=== PATIENT | male | born 1950 | race Caucasian/White ===

== ENCOUNTER 2017-08-02 19:09 | Emergency (ER) | payer OTHER ==
--- NOTE | 2017-08-02 21:18 | ED Physician Documentation ---
PD HPI SKIN - Stated complaint Stated Complaint: SPIDER BITE - Chief complaint Chief Complaint: Ext Problem - History obtained from History obtained from: Patient - History of Present Illness Timing - onset: Today (he was rummaging in an old box or such and felt a slight pinch feeling. He is now getting some bruising and redness locally at that site. Thinks it might be a spider bite.) Timing - duration: Hours Timing - details: Abrupt onset, Still present Location: LUE (little finger) Quality / character: Burning, Discolored. No: Itchy, Painful, Draining Associated symptoms: No: Fever, N/V/D Contributing factors: Insect bite /sting (he thinks it might have been a spider bite.) Similar symptoms before: Diagnosis (did have a spider bite once in the past that developed local necrosis and took awhile to heal in.) Recently seen: Not recently seen Review of Systems Constitutional: denies: Fever, Chills Cardiac: denies: Chest pain / pressure, Palpitations Respiratory: denies: Dyspnea, Cough Neurologic: denies: Generalized weakness, Focal weakness, Numbness, Near syncope PD PAST MEDICAL HISTORY - Past Medical History Cardiovascular: None Respiratory: None Neuro: None - Present Medications Home Medications: Ambulatory Orders Medication Instructions Recorded Confirmed Epinephrine [Epipen 2-Jens] 0.3 mg IJ 08/02/17 Sulfamethox/Trimeth 800/160 1 each PO BID #14 tablet 08/02/17 [Bactrim Ds 800/160] - Allergies Allergies/Adverse Reactions: Allergies Allergy/AdvReac Type Severity Reaction Status Date / Time melon Allergy Anaphylaxis Verified 08/02/17 19:20 narcotics AdvReac Unknown Uncoded 08/02/17 19:20 - Social History Does the pt smoke?: No Smoking Status: Never smoker Does the pt drink ETOH?: No Does the pt have substance abuse?: No PD ED PE NORMAL - Vitals Vital signs reviewed: Yes - General General: Alert and oriented X 3, No acute distress, Well developed/nourished - HEENT HEENT: Pharynx benign - Neck Neck: Supple, no meningeal sign, No adenopathy - Cardiac Cardiac: RRR, No murmur - Respiratory Respiratory: No respiratory distress, Clear bilaterally - Derm Derm: Normal color, Warm and dry - Extremities Extremities: Other (left little finger with focal area of mild swelling and bruising, with mild redness. No purulence. No extended redness. Normal ROM and sensation. ) Results - Vitals Vitals: Oxygen O2 Source Room air PD MEDICAL DECISION MAKING - ED course Complexity details: considered differential (has local area of mild redness and some bruising. No red streaking. Might actually be a true spider bite. ), d/w patient Departure - Departure Disposition: 01 Home, Self Care Clinical Impression: Spider bite wound Qualifiers: Encounter type: initial encounter Injury intent: accidental or unintentional Qualified Code(s): T63.301A - Toxic effect of unspecified spider venom, accidental (unintentional), initial encounter Condition: Stable Record reviewed to determine appropriate education?: Yes Instructions: ED Bite Insect Brown Recluse Spider, ED Abscess Abx Tx Only Ch Follow-Up: Anita Kinney MD [Primary Care Provider] - Prescriptions: Sulfamethox/Trimeth 800/160 [Bactrim Ds 800/160] 1 each PO BID #14 tablet Comments: This could reasonably look like an early spider bite. There is no antitoxin or away to treat it. He can use some anti-inflammatories and warm soaks just to get good blood flow to the area to counteract the surrounding inflammation. This alternatively could be an early infection instead or you can get infected and if so then start the antibiotic Bactrim. Otherwise just see what kind of progression it has over the next several days to week. Discharge Date/Time: 08/02/17 21:29
[2017-08-02 21:30] VITALS: BP 132/75
== END 2017-08-02 21:29 | disposition home or self-care (01) ==
LOC: ED 19:09
DX: T63.301A Toxic effect of unspecified spider venom, accidental (unintentional), initial encounter (principal)
CPT/HCPCS: 99283